=== PATIENT | female | born 1960 | race Caucasian/White ===

== ENCOUNTER → 2016-09-10 | Outpatient (CLI) | payer OTHER ==
--- NOTE | 2016-09-10 17:52 | DX ---
Standing AP view of the lower extremities and pelvis Indication: Evaluate for limb length discrepancy. Findings: The left femoral head is 2 mm superior to the right femoral head, resulting in minimal asym metric pelvic tilt. The shaft of the right and left femur from the apex of the femoral heads to the m edial femoral condyles is equal length (46 cm). The left tibia is 2 mm longer than the right, resulti ng in the pelvic discrepancy. Bilateral talar domes are equidistant from the floor. Impression: 2 mm limb length discrepancy with the left leg longer than the right. The asymmetry is du e to slightly longer left than right tibia.
== END ==
LOC: FIMAGING 15:17
PROVIDERS: ATTEND Podiatrist Foot & Ankle Surgery
DX: M21.70 Unequal limb length (acquired), unspecified site (principal)

== ENCOUNTER → 2018-01-14 | Outpatient (CLI) | payer OTHER | LOC: BMCIMAGING 08:18 | PROVIDERS: ATTEND Physician Assistant | DX: Z12.31 Encounter for screening mammogram for malignant neoplasm of breast (principal); Z80.3 Family history of malignant neoplasm of breast ==

== ENCOUNTER → 2018-05-28 | Outpatient (CLI) | payer OTHER | LOC: BMCIMAGING 14:46 | PROVIDERS: ATTEND Physician Assistant | DX: Z13.820 Encounter for screening for osteoporosis (principal); M85.88 Other specified disorders of bone density and structure, other site; Z78.0 Asymptomatic menopausal state ==

== ENCOUNTER → 2018-11-13 | Outpatient (CLI) | payer OTHER | LOC: BMCIMAGING 08:39 | PROVIDERS: ATTEND Physician Assistant | DX: N95.0 Postmenopausal bleeding (principal) ==